=== PATIENT | female | born 2000 | race Caucasian/White ===

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

== ENCOUNTER 2023-06-28 22:30 | Emergency (ER) | payer BC ==
[2023-06-28] MEDS ORDERED: MAG HYDROX/AL HYDROX/SIMETH 30 ML UNIT-DOSE CUP PO ONE (22:39)
[2023-06-28] MEDS ORDERED: FAMOTIDINE 20 MG TABLET PO ONE (22:40)
[2023-06-28] MEDS ORDERED: POLYETHYLENE GLYCOL (HEALTHYLAX) 3350 17 GM PACKET PO ONE (22:45)
[2023-06-28] MEDS ORDERED: FAMOTIDINE 20 MG TABLET ONE (22:53)
[2023-06-28 22:54] LABS: HCG,QUALITATIVE URINE Negative
[2023-06-28] MEDS ORDERED: MAG HYDROX/AL HYDROX/SIMETH 30 ML UNIT-DOSE CUP ONE (22:54)
[2023-06-28 23:01] LABS: HEMATOCRIT 38.4 % (32.4-45.2); HEMOGLOBIN 12.7 G/dL (10.7-15.3); MCH 27.5 pg (25.7-33.7); MEAN CELL VOLUME 83.2 fl (80-96); MEAN PLT VOLUME 7.6 fl (7.5-11.1); PLATELET COUNT 217.2 10^3/uL (134-434); RBC 4.61 10^6/uL (3.60-5.2); RDW 15.2 % (11.6-15.6); WHITE BLOOD COUNT 6.3 10^3/uL (4.0-10.8)
[2023-06-28 23:10] LABS: PLATELET ESTIMATE ADEQUATE
[2023-06-28 23:16] LABS: ALBUMIN 4.2 g/dl (3.4-5.0); BILIRUBIN,TOTAL 0.3 mg/dl (0.2-1); CALCIUM 9.7 mg/dl (8.5-10.1); POTASSIUM 3.6 mmol/L (3.5-5.1); TOT PROT 6.4 g/dl (6.4-8.2)
[2023-06-28 23:22] VITALS: BP 122/79; TEMP 98.4; BMI 24.4
[2023-06-28] MEDS ORDERED: SODIUM CHLORIDE 0.9% 1000 ML INFUS.BAG IV ONE (23:23)
[2023-06-29] MEDS ORDERED: ACETAMINOPHEN 1000 MG/100 ML BAG IVPB ONE (00:03)
[2023-06-29] MEDS ORDERED: ACETAMINOPHEN INJECTION 100 ML IVPB ONE (00:04)
[2023-06-29 01:01] VITALS: PULSE 77; RESP 18
[2023-06-29] MEDS ORDERED: MAGNESIUM CITRATE 300 ML BOTTLE PO ONE (01:15)
[2023-06-29] MEDS ORDERED: SODIUM PHOSPHATE/NA BIPHOS 133 ML ENEMA PR ONE (01:15)
[2023-06-29] MEDS ORDERED: MAGNESIUM CITRATE 300 ML BOTTLE ONE (01:17)
== END 2023-06-29 03:25 | disposition home or self-care (01) ==
LOC: FER 22:30
PROC: 3E033NZ Introduction of Analgesics, Hypnotics, Sedatives into Peripheral Vein, Percutaneous Approach (ICD-10-PCS; principal; 2023-06-29)
DX: R10.13 Epigastric pain (principal); R11.0 Nausea; R50.9 Fever, unspecified; K59.00 Constipation, unspecified; D73.4 Cyst of spleen; Z20.822 Contact with and (suspected) exposure to COVID-19
CPT/HCPCS: 0241U-QW; 36415; 74177-TC; 80053; 81003; 83735; 84703; 85027; 87086; 99285-25; Q9967